=== PATIENT | female | born 1995 | race Caucasian/White ===

== ENCOUNTER 2016-09-13 19:56 | Emergency (ER) | payer SELFPAY ==
[~2016-09-13] VITALS: Ht 162.6 cm; Wt 51.8 kg
[2016-09-13 19:58] VITALS: BP 102/68
[2016-09-13] MEDS ORDERED: LIDOCAINE 1%, 20ML ONE (20:46)
[2016-09-13] MEDS ORDERED: LIDOCAINE 1%, 20ML SQ ONE (21:00)
[2016-09-13] MEDS ORDERED: BACITRACIN ZINC OINT 500U/GM, 0.9 GM ONE (21:13)
== END 2016-09-13 21:31 | disposition home or self-care (01) ==
LOC: ED 21:00
DX: S61.412A Laceration without foreign body of left hand, initial encounter (principal); X58.XXXA Exposure to other specified factors, initial encounter; Y93.89 Activity, other specified; Y99.8 Other external cause status; Y92.89 Other specified places as the place of occurrence of the external cause
CPT/HCPCS: 12001